=== PATIENT | male | born 1995 | race Hispanic/Latino ===

== ENCOUNTER 2019-12-30 06:32 | Emergency (ER) | payer BC ==
[2019-12-30] MEDS ORDERED: Adacel (T-DAP) 0.5 ML SYRINGE ONE (07:06)
[2019-12-30] MEDS ORDERED: Lidocaine 1% w/Epinephrine 1:100K 20 ML VIAL ONE (07:35)
[2019-12-30] MEDS ORDERED: Bacitracin 1 PK ONE (08:07)
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
== END 2019-12-30 09:35 | disposition home or self-care (01) ==
LOC: ERS 06:32
DX: S01.01XA Laceration without foreign body of scalp, initial encounter (principal); F17.210 Nicotine dependence, cigarettes, uncomplicated; Z23 Encounter for immunization; V89.2XXA Person injured in unspecified motor-vehicle accident, traffic, initial encounter; Y92.411 Interstate highway as the place of occurrence of the external cause
CPT/HCPCS: 12002; 70450; 72125; 90471; 90715